=== PATIENT | female | born 1985 | race Caucasian/White ===

== ENCOUNTER 2016-10-27 02:28 | Emergency (ER) | payer OTHER | END 2016-10-27 04:27 | disposition left against medical advice (07) | DX: H61.21 Impacted cerumen, right ear (principal); Z53.20 Procedure and treatment not carried out because of patient's decision for unspecified reasons ==

== ENCOUNTER 2017-09-12 14:42 | Emergency (ER) | payer OTHER ==
[2017-09-12 15:06] VITALS: BP 120/79
[2017-09-12 15:13] LABS: BILIRUBIN,URINE NEGATIVE (NEGATIVE); GLUCOSE, URINE (UA) NEGATIVE (NEGATIVE); KETONES,URINE (UA) NEGATIVE (NEGATIVE); LEUKOCYTE ESTERASE, URINE MODERATE (NEGATIVE); NITRITE,URINE NEGATIVE (NEGATIVE); OCCULT BLOOD,URINE TRACE-LYSE (NEGATIVE); PH,URINE 5.5 PH (5.0-7.5); PROTEIN,URINE NEGATIVE (NEGATIVE); UROBILINOGEN,URINE 0.2 (NORMAL) E.U./dL (NORMAL)
[2017-09-12 15:16] LABS: CLARITY,URINE CLEAR (CLEAR); HCG UR QUAL NEGATIVE
[2017-09-12 15:22] LABS: BACTERIA,URINE Rare /HPF (None Seen); RBC,URINE 0-5 /HPF (0-5); SQUAMOUS EPITHELIAL CELL,UR FEW Squamous (<= Few)
[2017-09-12] MEDS ORDERED: cephALEXin 250 MG CAPSULE PO STA (15:27)
--- NOTE | 2017-09-12 15:29 | ED Physician Documentation ---
PD HPI FEMALE - Stated complaint Stated Complaint: FEMALE - Chief complaint Chief Complaint: Abd Pain - History obtained from History obtained from: Patient - History of Present Illness Timing - onset: Other (4 days of urinary frequency and dysuria with 1 day of left flank pain, mild nausea but no fevers or chills.) Review of Systems Constitutional: denies: Fever, Chills GI: reports: Nausea. denies: Abdominal Pain, Vomiting : reports: Dysuria, Frequency. denies: Hematuria PD PAST MEDICAL HISTORY - Past Medical History Past Medical History: No - Past Surgical History Past Surgical History: Yes - Present Medications Home Medications: Ambulatory Orders Medication Instructions Recorded Confirmed Amlodipine Bes/Olmesartan Med 09/12/17 [Sandhya 10-40 mg Tablet] Cephalexin [Keflex] 500 mg PO QID #28 capsule 09/12/17 - Allergies Allergies/Adverse Reactions: Allergies Allergy/AdvReac Type Severity Reaction Status Date / Time No Known Drug Allergies Allergy Verified 09/12/17 15:06 - Social History Does the pt smoke?: No Smoking Status: Never smoker Does the pt drink ETOH?: No Does the pt have substance abuse?: No - Immunizations Immunizations are current?: Yes PD ED PE NORMAL - Vitals Vital signs reviewed: Yes - General General: Alert and oriented X 3, No acute distress - Abdomen Abdomen: Soft, Non tender - Back Back: No CVA TTP - Neuro Neuro: Alert and oriented X 3, Normal speech Results - Vitals Vitals: Vital Signs - 24 hr 09/12/17 15:03 Temperature 36.5 C Heart Rate 74 Respiratory 16 Rate Blood Pressure 120/79 O2 Saturation 100 Oxygen O2 Source Room air - Labs Labs: Laboratory Tests 09/12/17 15:00 Urine Color YELLOW Urine Clarity CLEAR Urine pH 5.5 Ur Specific [place] <=1.005 Urine Protein NEGATIVE Urine Glucose (UA) NEGATIVE Urine Ketones NEGATIVE Urine Occult Blood TRACE-LYSE Urine Nitrite NEGATIVE Urine Bilirubin NEGATIVE Urine Urobilinogen 0.2 (NORMAL) Ur Leukocyte Esterase MODERATE H Urine RBC 0-5 Urine WBC >25 H Ur Squamous Epith Cells FEW Squamous Urine Bacteria Rare Ur Microscopic Review INDICATED Urine Culture Comments INDICATED Urine HCG, Qual NEGATIVE Departure - Departure Disposition: 01 Home, Self Care Clinical Impression: Pyelonephritis Condition: Good Record reviewed to determine appropriate education?: Yes Instructions: Pyelonephritis Dc Prescriptions: Cephalexin [Keflex] 500 mg PO QID #28 capsule Comments: We will culture your urine, the results should be done in 48-72 hours. If an antibiotic change is necessary we will call you. Return if worse in the meantime, especially if you develop increasing flank pain, fevers, or cannot keep down the medication.
== END 2017-09-12 15:36 | disposition home or self-care (01) ==
LOC: ED 14:42
DX: N12 Tubulo-interstitial nephritis, not specified as acute or chronic (principal)
CPT/HCPCS: 81001; 81025; 87086; 87181; 99283; A9270; 81003

== ENCOUNTER → 2017-12-12 | Outpatient (CLI) | payer OTHER | LOC: RT.N 15:00 | PROVIDERS: ATTEND Nurse Practitioner | DX: R06.02 Shortness of breath (principal); R00.2 Palpitations | CPT/HCPCS: 93005 ==

== ENCOUNTER 2017-12-25 12:57 | Outpatient (CLI) | payer OTHER ==
--- NOTE | 2017-12-25 15:35 | Ultrasound Report ---
Procedure Date: 12/25/2017 Accession Number: [id number] / [id number] Procedure: US - Pelvic w/Transvaginal CPT Code: FULL RESULT: EXAM: Pelvic w/Transvaginal DATE: 12/25/2017 1:49 PM CLINICAL HISTORY: DYSMENORRHEA,DEEP DYSPAREUNIA,UNSPECIFIED ABDOMINA COMPARISON: None. TECHNIQUE: Realtime transabdominal imaging performed to identify the uterus and adnexa and as an overview of other pelvic structures, followed by transvaginal imaging for better assessment of the endometrium and/or adnexa, with static image documentation. FINDINGS: Uterus: 7.2 x 4.5 x 2.9 cm, volume 49 cc. Anteverted position. Normal overall size and echotexture. Masses: None. Endometrium: 13 mm. Normal. Cervix: Unremarkable. Right Ovary/Adnexa: 5.1 x 2.9 x 2.2 cm, volume 17 cc. Normal echotexture. Blood flow is present. A 2.4 cm follicle is present. Left Ovary/Adnexa: 3.0 x 2.5 x 1.9 cm, volume 7 cc. Normal echotexture. Blood flow is present. No adnexal mass is seen. Free Fluid: Small amount the cul-de-sac. Other: None. IMPRESSION: Right ovarian follicle. Small amount of fluid in the cul-de-sac. RADIA
== END 2017-12-25 12:58 | disposition home or self-care (01) ==
LOC: DI 12:57
PROVIDERS: ATTEND Nurse Practitioner
DX: N94.6 Dysmenorrhea, unspecified (principal); N94.12 Deep dyspareunia; R10.9 Unspecified abdominal pain
CPT/HCPCS: 76830; 76856

== ENCOUNTER 2018-08-08 08:00 | Outpatient (CLI) | payer OTHER | END 2018-08-08 23:59 | disposition home or self-care (01) | LOC: LAB.N 08:00 | PROVIDERS: ATTEND Nurse Practitioner | DX: Z32.01 Encounter for pregnancy test, result positive (principal) | CPT/HCPCS: 36415; 84702 ==

== ENCOUNTER 2018-08-12 08:00 | Outpatient (CLI) | payer OTHER | END 2018-08-12 23:59 | disposition home or self-care (01) | LOC: LAB.N 08:00 | PROVIDERS: ATTEND Nurse Practitioner | DX: Z32.01 Encounter for pregnancy test, result positive (principal) | CPT/HCPCS: 36415; 84702 ==

== ENCOUNTER 2018-08-23 13:28 | Outpatient (CLI) | payer OTHER ==
[2018-08-23 14:38] LABS: HCG,QUALITATIVE BLOOD POSITIVE
== END 2018-08-23 13:29 | disposition home or self-care (01) ==
LOC: LAB 13:28
PROVIDERS: ATTEND Obstetrics & Gynecology
DX: Z32.00 Encounter for pregnancy test, result unknown (principal)
CPT/HCPCS: 84703; 86900; 86901

== ENCOUNTER 2018-08-26 14:36 | Outpatient (CLI) | payer OTHER | END 2018-08-26 23:59 | disposition home or self-care (01) | LOC: LAB.N 14:36 | PROVIDERS: ATTEND Registered Nurse | DX: Z32.01 Encounter for pregnancy test, result positive (principal) | CPT/HCPCS: 36415; 84702 ==

== ENCOUNTER 2018-09-17 08:00 | Outpatient (CLI) | payer OTHER | END 2018-09-17 23:59 | disposition home or self-care (01) | LOC: LAB.N 08:00 | PROVIDERS: ATTEND Nurse Practitioner | DX: O03.9 Complete or unspecified spontaneous abortion without complication (principal) | CPT/HCPCS: 36415; 84702 ==

== ENCOUNTER 2022-11-18 02:53 | Outpatient (CLI) | payer OTHER | END 2022-11-18 02:54 | disposition EMS.NT | LOC: EMS 02:53 | DX: R09.89 Other specified symptoms and signs involving the circulatory and respiratory systems (principal); F41.9 Anxiety disorder, unspecified ==

== ENCOUNTER 2022-12-25 12:43 | Outpatient (CLI) | payer OTHER ==
--- NOTE | 2022-12-25 14:29 | MRI Report ---
PROCEDURE: BRAIN WO INDICATIONS: TREMOR, PAIN, DIZZINESS TECHNIQUE: Noncontrast axial T1 spin echo, axial T2 fast spin echo, sagittal and axial FLAIR, coronal T2 fast sp in echo, axial gradient echo, axial diffusion and ADC through the brain. COMPARISON: None. FINDINGS: Image quality: Excellent. CSF Spaces: Basal cisterns are patent. No extra-axial fluid collections. Ventricles are normal in size and shape. Brain: No intracranial masses or hemorrhage. [place]/white matter interface is normal. Brainstem appe ars normal. Diffusion-weighted images demonstrate no acute ischemic insult. No chronic ischemic ins ults. Normal intravascular flow voids are present. Skull and face: Calvarium has normal marrow signal. Orbits appear normal. Sinuses: Sinuses and mastoids are clear. IMPRESSION: Negative brain MRI. No acute process. No recent infarct. Reviewed by: Tomasa Zuniga MD on 12/25/2022 2:27 PM PDT Approved by: Tomasa Zuniga MD on 12/25/2022 2:27 PM PDT Station ID: [id number]
--- NOTE | 2022-12-25 16:44 | MRI Report ---
PROCEDURE: CERVICAL SPINE WO INDICATIONS: TREMOR, PAIN, DIZZINESS TECHNIQUE: Noncontrast sagittal T1 spin echo and T2 fast spin echo, sagittal STIR, foraminal oblique sagittal T2 fast spin echo, and axial gradient echo or T2 fast spin echo through the cervical spine. COMPARISON: None. FINDINGS: Image quality: Excellent. Alignment and Curvature: There is loss of normal cervical lordosis. 2 mm of retrolisthesis of C5 on C6. Bone Marrow: Marrow demonstrates normal overall signal. Mild reactive signal within the endplates a djacent to the C5-C6 intervertebral disc. Spinal Cord: Visualized spinal cord has normal size and signal. No cerebellar tonsillar herniation. Paraspinous Soft Tissues: No paravertebral masses. Prevertebral soft tissues are normal in thicknes s. C2-C3: Normal in appearance. C3-C4: Normal in appearance. C4-C5: Mild disc desiccation and diffuse disc bulge. Mild canal stenosis. No foraminal stenosis. C5-C6: Mild disc desiccation and diffuse disc bulge with superimposed left paracentral disc protrusi on. Mild facet and uncovertebral hypertrophy. There is moderate to severe canal stenosis. Minimal cor d flattening. Mild right greater than left foraminal stenosis C6-C7: Normal in appearance. C7-T1: Normal in appearance. IMPRESSION: 1. Multilevel degenerative disc and facet disease, as well as uncovertebral hypertrophy. Next and2. M ultilevel canal stenoses, worst at C5-C6 where there is minimal cord flattening. 3. Mild multilevel foraminal stenoses. Reviewed by: Tomasa Zuniga MD on 12/25/2022 4:43 PM PDT Approved by: Tomasa Zuniga MD on 12/25/2022 4:43 PM PDT Station ID: [id number]
== END 2022-12-25 12:44 | disposition home or self-care (01) ==
LOC: DI 12:43
PROVIDERS: ATTEND Physician Assistant
DX: R25.1 Tremor, unspecified (principal); R52 Pain, unspecified; R42 Dizziness and giddiness; M47.812 Spondylosis without myelopathy or radiculopathy, cervical region; M50.321 Other cervical disc degeneration at C4-C5 level; M48.02 Spinal stenosis, cervical region

== ENCOUNTER 2022-12-28 12:42 | Outpatient (CLI) | payer OTHER ==
--- NOTE | 2022-12-28 14:18 | MRI Report ---
PROCEDURE: THORACIC SPINE WO INDICATIONS: TREMOR, PAIN, DIZZINESS TECHNIQUE: Noncontrast sagittal T1 spine echo and T2 fast spin echo, sagittal STIR, axial T1 and T2 fast spin ec ho through the thoracic spine. COMPARISON: None. FINDINGS: Image quality: Excellent. Alignment and Curvature: There is normal bony alignment. Bone Marrow: Marrow is of normal overall signal. No acute vertebral body compression fractures. Spinal Cord: Visualized spinal cord is normal in size and signal. Paraspinous Soft Tissues: No paravertebral masses. Miscellaneous: On axial images, central canal and foramina appear widely patent at all scanned level s. IMPRESSION: Normal thoracic spine Reviewed by: Lasha Powers on 12/28/2022 1:17 PM PHILLIP Approved by: Lasha Powers on 12/28/2022 1:17 PM PHILLIP Station ID: [id number]
--- NOTE | 2022-12-28 15:19 | MRI Report ---
PROCEDURE: LUMBAR SPINE WO INDICATIONS: TREMOR, PAIN, DIZZINESS TECHNIQUE: Noncontrast sagittal T1 spin echo and T2 fast echo, sagittal STIR, axial T1 and T2 fast spin echo thr ough the lumbar spine. In cases with scoliosis, additional coronal T2 fast spin echo may be performe d. COMPARISON: None. FINDINGS: Image quality: Excellent. Alignment and Curvature: There is normal bony alignment. Bone Marrow: Marrow is of normal overall signal. No acute vertebral body compression fractures. Spinal Cord: Conus medullaris terminates at the L1 level. Visualized cord demonstrates normal signa l and size. Paraspinous Soft Tissues: No paravertebral masses. T12-L1: No disc bulge. The foramina and central canal are patent. L1-L2: No disc bulge. The foramina and central canal are patent. L2-L3: No disc bulge. The foramina and central canal are patent. L3-L4: No disc bulge. The foramina and central canal are patent. L4-L5: The disc is desiccated with preserved height. There is a midline annular tear in the disc post eriorly. The foramina have minimal foraminal stenosis bilaterally. The central canal is patent. L5-S1: The disc is desiccated with a diffuse disc bulge and disc space narrowing. The disc has a ce ntral/left paracentral protrusion which extends caudally. The foramina have mild foraminal stenosis bilaterally. The protrusion encroaches upon the left lateral recess but does not appear to cause impi ngement of the exiting S1 nerve root. The central canal is patent. IMPRESSION: 1. Degenerative disc disease with a diffuse disc bulge of L5-S1 with a central/left paracentral protr usion causing mild bilateral foraminal stenosis. 2. Degenerative disc disease with a diffuse disc bulge of L4-5 with a central annular tear which does not cause significant foraminal stenosis. 3. No significant central canal stenosis. 4. The visualized cord demonstrates normal signal. Reviewed by: Lasha Powers on 12/28/2022 2:17 PM PHILLIP Approved by: Lasha Powers on 12/28/2022 2:17 PM PHILLIP Station ID: [id number]
== END 2022-12-28 12:43 | disposition home or self-care (01) ==
LOC: DI 12:42
PROVIDERS: ATTEND Physician Assistant
DX: R25.1 Tremor, unspecified (principal); R42 Dizziness and giddiness; M51.36 Other intervertebral disc degeneration, lumbar region; M51.37 Other intervertebral disc degeneration, lumbosacral region; M48.07 Spinal stenosis, lumbosacral region; M48.061 Spinal stenosis, lumbar region without neurogenic claudication

== ENCOUNTER 2023-08-18 21:06 | Emergency (ER) | payer OTHER ==
--- NOTE | 2023-08-18 21:19 | ED Physician Documentation ---
History of Present Illness - Stated complaint Stated Complaint: DIZZY - Chief complaint Chief Complaint: General - History obtained from History obtained from: Patient - Additonal information Additional information: HPI from patient. Patient c/o sudden onset dizziness earlier this evening while at home, associated with nausea but no vomiting. Symptoms are distinctly worse with movement of head (turning to either side, in particular). Denies fever, visual changes. Denies injury, denies MENDOZA, denies weakness/numbness. Review of Systems Constitutional: denies: Fever, Chills, Sweats Eyes: denies: Loss of vision, Decreased vision, Photophobia GI: reports: Nausea. denies: Abdominal Pain, Vomiting : denies: Now EGA Neurologic: denies: Generalized weakness, Focal weakness, Numbness, Headache PD PAST MEDICAL HISTORY - Past Medical History Past Medical History: No - Past Surgical History Past Surgical History: Yes - Present Medications Home Medications: Ambulatory Orders Medication Instructions Recorded Confirmed Meclizine [Antivert] 25 mg PO Q6H PRN #20 tablet 08/18/23 Ondansetron Odt [Zofran Odt] 4 mg TL Q6H PRN #10 tablet 08/18/23 - Allergies Allergies/Adverse Reactions: Allergies Allergy/AdvReac Type Severity Reaction Status Date / Time No Known Drug Allergies Allergy Verified 08/18/23 21:12 - Social History Does the pt smoke?: No Smoking Status: Never smoker Does the pt drink ETOH?: No Does the pt have substance abuse?: No - Immunizations Immunizations are current?: Yes - POLST Patient has POLST: No PD ED PE NORMAL - Vitals Vital signs reviewed: Yes - General General: Alert and oriented X 3, No acute distress, Well developed/nourished - HEENT HEENT: PERRL, EOMI, Moist mucous membranes - Neck Neck: Supple, no meningeal sign, Thyroid normal - Cardiac Cardiac: RRR, No murmur - Respiratory Respiratory: No respiratory distress, Clear bilaterally - Abdomen Abdomen: Soft, Non tender - Neuro Neuro: Alert and oriented X 3, wrong address clerk 2-12 intact, No motor deficit, No sensory deficit, Normal speech Eye Opening: Spontaneous Motor: Obeys Commands Verbal: Oriented GCS Score: 15 Results - Vitals Vitals: Oxygen O2 Source Room air - EKG (time done) No standard instances EKG releavant findings:: EKG personally interpreted by author of this note. Relevant findings are: Rate: Rate (enter#) (79) Rhythm: NSR [place]: Normal Intervals: Normal [place] QRS: Normal Ischemia: Normal ST segments - Labs Labs: Laboratory Tests 08/18/23 08/18/23 23:23 23:23 WBC 6.6 RBC 4.29 Hgb 12.7 Hct 38.0 MCV 88.6 MCH 29.6 MCHC 33.4 RDW 12.3 Plt Count 208 MPV 11.3 H Neut # (Auto) 4.6 Lymph # (Auto) 1.1 L [place] # (Auto) 0.6 Eos # (Auto) 0.2 Baso # (Auto) 0.0 Absolute Nucleated RBC 0.00 Nucleated RBC % 0.0 Sodium 138 Potassium 4.0 Chloride 108 Carbon Dioxide 24 Anion Gap 6.0 BUN 17 Creatinine 0.8 Estimated GFR (MDRD) 81 L Glucose 126 H Calcium 9.2 Total Bilirubin 0.3 AST 15 ALT 17 Alkaline Phosphatase 52 Total Protein 6.7 Albumin 4.3 Globulin 2.4 Albumin/Globulin Ratio 1.8 Lipase 17 TSH 4.70 PD Medical Decision Making - ED course Complexity details: reviewed results, re-evaluated patient, considered differential, d/w patient ED course: H+P are highly s/o benign peripheral vertigo. She is given 4mg TL ondansetron and 25 mg PO meclizine. She reported improvement with these measures on reevaluation; discharge instructions are printed and reviewed. She then told ED RN she was feeling "worse" (per patient); when I again reevaluated her, she is now c/o vague anterior midline chest discomfort without radiation. She cannot elaborate further from telling me "I just don't feel right". Thus, EKG and basic blood tests performed and there are no concerning nor diagnostic findings on these tests. Results d/w patient. She says she feels comfortable with d/c home at this point. Return precautions are reviewed and I advised her to follow up with PCP, next available appointment, for reevaluation. Departure - Departure Disposition: Home, Self Care Clinical Impression: Vertigo Condition: Good Instructions: Meclizine, ED Vertigo Unspecified Prescriptions: Meclizine [Antivert] 25 mg PO Q6H PRN #20 tablet PRN Reason: Vertigo Ondansetron Odt [Zofran Odt] 4 mg TL Q6H PRN #10 tablet PRN Reason: Nausea / Vomiting Comments: Your symptom description is highly suggestive of/consistent with vertigo; discharge instructions regarding this diagnosisare provided within this discharg e packet. For most people, the symptoms resolve within 1 to 3 days, although symptoms can last significantly longer. If your symptoms do not resolve within the next 2-3 days, contact your primary care provider to arrange for next available appointment for reevaluation. I have electronically submitted prescriptions for meclizine (anti-vertigo medication) and ondansetron (antinausea medication) to [facility] in [place]. As we discussed, there are many videos on Yaquelin maneuvers. These are a series of timed movements of your head while lying down supine (face-up); some patients achieve immediate and significant improvement with these maneuvers. You can look up Yaquelin maneuvers on YouTube. I would recommend using a video which does not involve lying on the bed with the head over the edge (unsupported), as this can cause strain on the neck. Discharge Date/Time: 08/19/23 00:15
[2023-08-18] MEDS: ONDANSETRON ODT 4 MG TABLET TL STA (21:53)
[2023-08-18] MEDS: MECLIZINE 12.5 MG TABLET PO STA (21:53)
[2023-08-18 23:28] LABS: BASOPHILS % (AUTO) 0.5 %; EOSINOPHILS # (AUTO) 0.2 10^3/uL (0.0-0.7); EOSINOPHILS % (AUTO) 3.6 %; HGB - HEMOGLOBIN 12.7 g/dL (12.0-16.0); LYMPHOCYTES # (AUTO) 1.1 10^3/uL (1.5-3.5); MEAN CORPUSCULAR HEMOGLOBIN 29.6 pg (27.0-31.0); MEAN CORPUSCULAR HGB CONC 33.4 g/dL (32.0-36.0); MEAN CORPUSCULAR VOLUME 88.6 fL (81.0-99.0); MEAN PLATELET VOLUME 11.3 fL (7.9-10.8); MONOCYTES # (AUTO) 0.6 10^3/uL (0.0-1.0); MONOCYTES % (AUTO) 8.5 %; NEUTROPHILS # (AUTO) 4.6 10^3/uL (1.5-6.6); NEUTROPHILS % (AUTO) 70.1 %; PLT - PLATELET COUNT 208 10^3/uL (130-450); RED BLOOD COUNT 4.29 10^6/uL (4.20-5.40); RED CELL DISTRIBUTION WIDTH 12.3 % (12.0-15.0); WHITE BLOOD COUNT 6.6 x10^3/uL (4.8-10.8)
[2023-08-18 23:50] LABS: ALBUMIN 4.3 g/dL (3.2-5.5); ALBUMIN/GLOBULIN RATIO 1.8 (1.0-2.2); BILIRUBIN,TOTAL 0.3 mg/dL (0.2-1.0); CALCIUM 9.2 mg/dL (8.5-10.3); CREATININE 0.8 mg/dL (0.6-1.3); TOTAL PROTEIN 6.7 g/dL (6.4-8.9)
[2023-08-19 00:02] LABS: THYROID STIMULATING HORMONE 4.7 uIU/mL (0.34-5.60)
[2023-08-19 00:31] VITALS: BP 110/74; O2SAT 100
== END 2023-08-19 00:15 | disposition home or self-care (01) ==
LOC: ED 21:06
DX: R42 Dizziness and giddiness (principal)
CPT/HCPCS: 36415; 80053; 83690; 84443; 85025; 93005; 99284; A9270; Q0162